=== PATIENT | male | born 1990 ===

== ENCOUNTER 2020-09-25 15:52 | Observation (INO) | payer BC ==
[~2020-09-25] VITALS: Ht 177.8 cm; Wt 80.0 kg
--- NOTE | 2020-09-25 16:02 | NUR ---
BIB EMS FROM [facility] FOR LEFT SUBMANDIBULAR ABSCESS. [employer] AND [employer]UL[employer] [facility]: PIV 18G LFA, 1GM ROCEPHIN, 600 CLINDAMYCIN, 30MG TORADOL. PT CONNECTED TO MONITORING. CALL LIGHT IN REACH. WARM BLANKET PROVIDED.
--- NOTE | 2020-09-25 16:04 | NUR ---
PT STATES LAST TIME ATE OR DRANK WAS YESTERDAY.
[2020-09-25] MEDS ORDERED: SODIUM CHLORIDE FLUSH 10ML SYR IVF ONE (16:30)
[2020-09-25] MEDS ORDERED: SODIUM CHLORIDE 0.9% 1,000 ML IV ONE ×2 (16:30→17:30)
--- NOTE | 2020-09-25 16:48 | NUR ---
IVF RUNNING. ERMD AT BEDSIDE FOR RAPID COVID SWAB.
[2020-09-25] MEDS ORDERED: SODIUM CHLORIDE FLUSH 10ML SYR IVF PRN (17:30)
[2020-09-25] MEDS ORDERED: ONDANSETRON 2MG/ML, 2ML IVPush PRN ×2 (17:30→21:00)
[2020-09-25] MEDS ORDERED: morphine SULFATE 10 MG/ML, 1ML IVPush PRN (17:30)
[2020-09-25] MEDS ORDERED: ACETAMINOPHEN 325 MG TABLET PO PRN (17:30)
[2020-09-25] MEDS ORDERED: DOCUSATE 100 MG CAPSULE PO PRN (17:30)
[2020-09-25] MEDS ORDERED: ENALAPRILAT 1.25 MG/ML, 2ML IVPush PRN (17:30)
[2020-09-25] MEDS ORDERED: SODIUM CHLORIDE 0.9% 1,000 ML IV SCH (17:30)
[2020-09-25] MEDS ORDERED: KETOROLAC 30 MG/1 ML IV PRN ×2 (17:30→21:00)
[2020-09-25] MEDS ORDERED: AMPICILLIN/SULBACTAM 3 GM in SODIUM CHLORIDE 0.9% 100 ML IV SCH (17:30)
[2020-09-25] MEDS ORDERED: HYDROcodone/APAP 5/325 TABLET PO PRN (17:30)
[2020-09-25] MEDS ORDERED: ONDANSETRON ODT 4 MG PO PRN (17:30)
[2020-09-25 18:14] LABS: BASOPHILS % (AUTO) 0 % (0-1); EOSINOPHILS % (AUTO) 1 % (1-7); LYMPHOCYTES % (AUTO) 8 % (22-44); MEAN CORPUSCULAR HEMOGLOBIN 28.7 pg (27.5-34.5); MEAN CORPUSCULAR HGB CONC 33.8 g/dL (33.2-36.2); MEAN PLATELET VOLUME 8.7 fL (7.4-10.4); MONOCYTES % (AUTO) 9 % (2-9); NEUTROPHILS % (AUTO) 82 % (42-75); PLATELET COUNT 161 x10^3/uL (130-400); RED CELL DISTRIBUTION WIDTH 14.6 % (9.4-14.8)
[2020-09-25 18:24] LABS: ALBUMIN 3.5 g/dL (3.4-5.0); ANION GAP 5 mmol/L (5-15); CALCIUM 8.8 mg/dL (8.5-10.1); CHLORIDE 106 mmol/L (98-107)
--- NOTE | 2020-09-25 18:25 | NUR ---
REPORT GIVEN TO ZHANNA OLIVARES. PT RTG TO ROOM [id number]
[2020-09-25 19:07] VITALS: BP 136/69
[2020-09-25] MEDS ORDERED: MIDAZOLAM 1 MG/ML, 2ML ONE (20:27)
[2020-09-25] MEDS ORDERED: ONDANSETRON 2MG/ML, 2ML ONE (20:38)
[2020-09-25] MEDS ORDERED: SUCCINYLCHOLINE 20 MG/ML, 10ML ONE (20:38)
[2020-09-25] MEDS ORDERED: DEXAMETHASONE 4 MG/ML, 1ML ONE (20:38)
[2020-09-25] MEDS ORDERED: PROPOFOL 10 MG/ML, 20ML ONE (20:38)
[2020-09-25] MEDS ORDERED: FENTANYL PF 100 MCG/2ML ONE ×2 (20:46→22:23)
[2020-09-25] MEDS ORDERED: LIDOCAINE 1%, 20ML ONE (20:48)
[2020-09-25] MEDS ORDERED: PROMETHAZINE 25 MG/ML, 1ML IV PRN (21:00)
[2020-09-25] MEDS ORDERED: DIAZEPAM 5 MG/ML, 2ML IV PRN ×2 (21:00)
[2020-09-25] MEDS ORDERED: ALBUTEROL SULFATE 2.5 MG/3 ML NPPB PRN (21:00)
[2020-09-25] MEDS ORDERED: MEPERIDINE/PF 25MG/0.5ML IVPush PRN (21:00)
[2020-09-25] MEDS ORDERED: hydrALAzine 20 MG/ML, 1ML IV PRN (21:00)
[2020-09-25] MEDS ORDERED: LABETALOL 5MG/ML, 20ML IV PRN (21:00)
[2020-09-25] MEDS ORDERED: HYDROmorphone 1 MG/ML, 1ML INJ IV PRN (21:00)
[2020-09-25] MEDS ORDERED: METOCLOPRAMIDE 5 MG/ML, 2ML IV PRN (21:00)
[2020-09-25] MEDS ORDERED: OXYcodone 5 MG/5 ML ORAL.SOL UDC PO PRN (21:00)
[2020-09-25] MEDS ORDERED: FENTANYL PF 100 MCG/2ML IV PRN (21:00)
[2020-09-25] MEDS ORDERED: ZOLPIDEM 5MG TABLET PO PRN (21:00)
[2020-09-25] MEDS ORDERED: AMOX1TAB64 PO ×2 (23:42→23:43)
== END 2020-09-26 00:14 | disposition home or self-care (01) ==
LOC: ED 16:52 → INTOOBSV 17:02 → EDIP 17:02 → SUATTDRO 17:22 → 3N 18:48
PROVIDERS: ADMIT Hospitalist; ATTEND Hospitalist
DX: K12.2 Cellulitis and abscess of mouth (principal); Z20.822 Contact with and (suspected) exposure to COVID-19; K04.6 Periapical abscess with sinus; K02.9 Dental caries, unspecified; Z79.899 Other long term (current) drug therapy
CPT/HCPCS: 36415; 40801; 41899; 70100; 80048; 82040; 85025; 87635; 96361; 96374; 99284; G0378; J0295; J0330; J1100; J2250; J2270; J2405; J2704; J3010; J3490; J7030